=== PATIENT | female | born 1930 | race Caucasian/White ===

== ENCOUNTER 2018-11-12 07:39 | Inpatient (IN) ==
[2018-11-12] MEDS ORDERED: NS 1,000 ML IV PRN (08:17)
--- NOTE | 2018-11-12 08:25 | PROVIDER DOCUMENTATION ---
HPI-Neurological Disorder - General Chief Complaint: General Adult Stated Complaint: LEFT HAND PAIN,RT SHOULDER ,ARM JERKING Time Seen by Provider: 11/12/18 08:06 Source: family Allergies/Adverse Reactions: Patient Allergies Allergy/AdvReac Type Severity Reaction Status Date / Time acetaminophen AdvReac RASH Verified 11/12/18 09:27 [From Contac Cold-Flu Day and Night] chlorpheniramine AdvReac RASH Verified 11/12/18 09:27 [From Contac Cold-Flu Day and Night] phenylephrine HCl * AdvReac RASH Verified 11/12/18 09:27 [From Contac Cold-Flu Day and Night] Home Medications: Home Medication List Medication Instructions Recorded Confirmed Last Taken Type Levothyroxine [Synthroid] 50 microgm PO DAILY 02/08/16 11/12/18 11/12/18 History Metoprolol Succinate E.r. [Toprol 25 mg PO DAILY 02/08/16 11/12/18 11/11/18 History Xl] Dorzolamide/Timolol Ophth Soln 1 drop BID 05/02/17 11/12/18 11/11/18 History [Cosopt Ophth Soln] Aspirin [Aspirin EC] 81 mg PO DAILY 11/12/18 11/12/18 11/11/18 History Irbesartan 150 mg PO DAILY 11/12/18 11/12/18 11/11/18 History Omeprazole 40 mg PO DAILY 11/12/18 11/12/18 11/11/18 History - History of Present Illness-Neuro Nature of Presenting Problem: patient woke up, c/o left arm and shoulder pain which was chronic, then patient was staring, unresponsive but normal breathing, right arm jerking, episode lasted about 6 minutes. Severity: reports: mild Onset/Duration: reports: abrupt, just prior to arrival Timing: reports: improving Context: denies: head injury, fever, impaired speech, paresthesia, facial droop Character of Altered Mental Status: reports: seizure activity Any recent trauma/injury?: reports: none Character of Deficits: reports: falling Cognitive Baseline: alert, oriented x3 Gait Baseline: other (but recently fell 3 times) Associated Symptoms: reports: seizures. denies: short of breath, headache Similar Symptoms Previously?: No Recently seen or treated by another doctor?: No - Seizure First time to have a seizure?: Yes Witnessed seizure?: Yes Status Epilepticus: No Character of Seizure: reports: shaking in one area, staring. denies: generalized shaking all over, incontinent of urine, incontinent of stool, stopped breathing Post-ictal Symptoms: reports: confusion Review of Systems - Adult - REVIEW OF SYSTEMS - ADULT Constitutional: reports: see HPI Eyes: reports: see HPI Ears, Nose, Mouth & Throat: reports: no symptoms reported Cardiovascular: reports: no symptoms reported Respiratory: reports: no symptoms reported Gastrointestinal: reports: no symptoms reported Genitourinary: reports: no symptoms reported Musculoskeletal: reports: bone pain, joint pain Integumentary: reports: no symptoms reported Neurological: reports: seizure Psychiatric: reports: depression Endocrine: reports: no symptoms reported Hematologic/Lymphatic: reports: no symptoms reported Past History - Adult - PAST MEDICAL HISTORY-ADULT Review of Records: reports: Nursing Assessment Review Cardiovascular: reports: HTN. denies: cardiac disease, CHF Respiratory: reports: denies history Gastrointestinal: reports: denies history Obstetrical/Gynecological: reports: denies history Physical Exam- Neurological - Physical Exam-Neuro Initial Vital Signs Reviewed: Yes General Appearance: alert, other (fragile looking) Eye Exam: bilateral eye: PERRL, EOMI HENMT: normocephalic/atraumatic Head Injury: no evidence of injury. negative: active bleeding, Zuñiga's Sign, ecchymosis, raccoon eyes, swelling Neck: non-tender. negative: carotid bruit Respiratory: chest non-tender, lungs clear Cardiovascular: normal peripheral pulses, regular rate, rhythm, no edema, no gallop, no JVD Abdominal Exam: normal bowel sounds, non tender Lymphatic: no adenopathy Extremity: tenderness. negative: pulse deficit, pedal edema vegetable tier Exam: PERRL Motor/Sensory: no motor deficit, no sensory deficit, no pronator drift Integumentary: normal color Psych/Mental Status: normal mood/affect - Glascow Coma Scale Best Eye Response: (4) open spontaneously Best Verbal Response: (5) oriented Best Motor Response: (6) obeys commands Progress - PLAN OF CARE/RESULTS Progress/Plan/Lab Results: Vital Signs - 8 hr 11/12/18 07:46 Temperature 97.3 F L Pulse Rate 58 L Respiratory Rate 20 Blood Pressure 134/60 O2 Sat by Pulse Oximetry 100 Laboratory Results - last 24 hr 11/12/18 11/12/18 11/12/18 09:20 09:20 09:20 WBC 14.71 H RBC 4.41 Hgb 12.7 Hct 37.8 MCV 85.7 MCH 28.8 MCHC 33.6 RDW Std Deviation 13.9 Plt Count 238 MPV 11.1 H Immature Gran % (Auto) 0.1 Neut % (Auto) 81.6 H Lymph % (Auto) 10.2 L [place] % (Auto) 7.9 Eos % (Auto) 0.1 Baso % (Auto) 0.1 Immature Gran # (Auto) 0.02 Neut # (Auto) 12.00 H Lymph # (Auto) 1.50 [place] # (Auto) 1.16 H Eos # (Auto) 0.02 Baso # (Auto) 0.01 PT 14.5 INR 1.05 PTT (Actin FS) 32.7 Sodium 131 L Potassium 4.6 Chloride 98 Carbon Dioxide 20 L Anion Gap 13 BUN 20 Creatinine 1.0 H Estimated GFR/1.73 m2 53 BUN/Creatinine Ratio 20 Glucose 136 H Calculated Osmolality 267 Calcium 9.0 Total Bilirubin 0.92 AST 18 ALT 9 L Alkaline Phosphatase 50 Troponin T Total Protein 6.6 Albumin 3.7 Globulin 2.9 Albumin/Globulin Ratio 1.3 11/12/18 09:20 WBC RBC Hgb Hct MCV MCH MCHC RDW Std Deviation Plt Count MPV Immature Gran % (Auto) Neut % (Auto) Lymph % (Auto) [place] % (Auto) Eos % (Auto) Baso % (Auto) Immature Gran # (Auto) Neut # (Auto) Lymph # (Auto) [place] # (Auto) Eos # (Auto) Baso # (Auto) PT INR PTT (Actin FS) Sodium Potassium Chloride Carbon Dioxide Anion Gap BUN Creatinine Estimated GFR/1.73 m2 BUN/Creatinine Ratio Glucose Calculated Osmolality Calcium Total Bilirubin AST ALT Alkaline Phosphatase Troponin T < 0.010 Total Protein Albumin Globulin Albumin/Globulin Ratio Orders Category Date Time Status Cardiac Monitoring DIRECTED Care 11/12/18 08:17 Active Misc. NRSG Communication Order DIRECTED Care 11/12/18 08:17 Active Oxygen Therapy- ED Nursing DIRECTED Care 11/12/18 08:17 Active Saline Loc NOW Care 11/12/18 08:17 Active CHEST-PORTABLE [RAD] Stat Exams 11/12/18 08:[address] HEAD W/O CONTRAST [CT] Stat Exams 11/12/18 08:17 Completed MRA BRAIN W/O CONTRAST [MRI] Stat Exams 11/12/18 10:50 Ordered MRI BRAIN W/WO CONTRAST [MRI] Stat Exams 11/12/18 10:50 Ordered BLOOD CULTURE [BLDCUL] Stat Lab 11/12/18 10:51 Uncollected CBC WITH ELECTRONIC DIFF [HEME] Stat Lab 11/12/18 09:20 Completed COMPREHENSIVE METABOLIC PANEL [CHEM] Stat Lab 11/12/18 09:20 Completed FREE T4 Stat Lab 11/12/18 10:52 Uncollected LACTATE, PLASMA [CHEM] Stat Lab 11/12/18 10:51 Uncollected PROTIME WITH INR [COAG] Stat Lab 11/12/18 09:20 Completed PTT [COAG] Stat Lab 11/12/18 09:20 Completed TROPONIN T Stat Lab 11/12/18 09:20 Completed TSH Stat Lab 11/12/18 10:52 Uncollected URINALYSIS W/POSS RFLX CULT [URINALYSIS] Stat Lab 11/12/18 08:17 Uncollected 0.9% Sodium Chloride Inj [Ns] 1,000 ml Med 11/12/18 08:17 Active IV 500 mls/hr 0.9% Sodium Chloride Inj [Ns] 500 ml Med 11/12/18 10:20 Discontinued IV 999 mls/hr EKG [EKG] Stat Ther 11/12/18 08:17 Ordered Result Diagrams: 11/12/18 09:20 11/12/18 09:20 Departure - Departure Date of Disposition Decision: 11/12/18 Time of Disposition Decision: 10:55 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 The physician did have a face to face encounter with the patient. - NIH Stroke Scale Level of Consciousness: 0-Alert LOC Questions (ask month and age): 0-Answers Both Correctly LOC Commands (ask to open & close eyes;make a fist, let go): 0-Obeys Both Correctly Best Gaze (horizontal eye movement): 0-Normal Visual (use finger movement, counting or visual threat): 0-No Visual Loss Facial Palsy (show teeth or raise eyebrows & close eyes tght: 0-Symmetrical Movement Motor Function-left arm: 0-Normal Motor Function-right arm: 0-Normal Motor Function-left le-Normal Motor Function-right le-Normal Limb Ataxia(fpidnc-pfux-mtebkm, or heel to lopez): 0-Untestable Sensory(pin prick to face,arms,trunk,legs-compare side/side): 0-No Ataxia Best Language(name item/read sentence.Ex-Down to Earth): 0-No Aphasia Dysarthria(Pt read words or say words Ex.Mama,Tip-Top,Thanks: 0-Normal Articulation Modified [place] Score Criteria: 0-no symptoms
--- NOTE | 2018-11-12 08:44 | Diag Imaging Result Doc PS360 ---
EXAM: CHEST-PORTABLE HISTORY: stroke like symptoms TECHNIQUE: Single view COMPARISON: 06/27/2018 FINDINGS: The lungs are well expanded. The heart is mildly enlarged. The vessels are not distended. There are no infiltrates. No effusion identified. IMPRESSION: Stable exam Electronically signed by Agustin Treviño 11/12/2018 8:42 AM
--- NOTE | 2018-11-12 08:54 | Diag Imaging Result Doc PS360 ---
EXAM: CT HEAD W/O CONTRAST INDICATION: stroke like symptoms TECHNIQUE: This exam was performed using automated exposure control, adjustment of mA or kV according to patient size, and/or use of iterative reconstruction technique. COMPARISON: 09/27/2018 FINDINGS: There is suggestion of mild to moderate white matter microangiopathy, stable. There is no definite acute infarct given the limited sensitivity of CT versus MRI. There is no discrete intracranial mass, mass effect, or intracranial hemorrhage. There is a nonspecific nodule at the superior aspect of the right parotid gland that is stable measuring up to 1.6 x 1.1 cm axially. Surrounding soft tissues and bony structures are essentially unremarkable, otherwise. IMPRESSION: 1.Stable chronic appearing white matter changes. No evidence of acute intracranial pathology by CT. 2.Stable nonspecific right parotid gland nodule. Electronically signed by Joseph Powell 11/12/2018 8:51 AM
[2018-11-12 09:33] LABS: BASO# 0.01 X1000 (0.0-0.2); BASO% 0.1 % (0.0-0.8); EOS# 0.02 X1000 (0.0-0.7); EOS% 0.1 % (0.0-10.0); HEMATOCRIT 37.8 % (37.0-47.0); HEMOGLOBIN 12.7 g/dL (12.0-16.0); IMM GRAN# 0.02 X1000 (0.0-0.04); IMM GRAN% 0.1 % (0.0-0.5); LYMPH% 10.2 % (20.5-51.1); MCH 28.8 PG (27-31); MCHC 33.6 g/dL (33-37); MCV 85.7 FL (81-99); MONO# 1.16 X1000 (0.11-0.59); MONO% 7.9 % (1.7-9.3); MPV 11.1 FL (7.4-10.4); NEUT% 81.6 % (42.2-75.2); PLT 238 X1000 (130-400); RBC 4.41 XMIL (4.2-5.4); RDW 13.9 % (11.5-14.5); WBC 14.71 X1000 (4.8-10.8)
[2018-11-12 09:49] LABS: INR 1.05; PROTIME 14.5 Seconds (11.0-16.0)
[2018-11-12 09:50] LABS: PTT 32.7 Seconds (22.3-41.8)
[2018-11-12 09:51] LABS: ALB/GLOB RATIO 1.3; ALBUMIN 3.7 g/dL (3.5-5.0); POTASSIUM 4.6 mmol/L (3.5-5.1); TOTAL BILIRUBIN 0.92 mg/dL (0.20-1.00); TOTAL PROTEIN 6.6 g/dL (6.3-8.3)
[2018-11-12] MEDS ORDERED: NS 500 ML IV ONE (10:20)
[2018-11-12 11:47] LABS: TSH 0.8 uIUmL (0.27-4.20)
[2018-11-12 12:16] LABS: FREE T4 1.94 ng/dL (0.93-1.70)
[2018-11-12] MEDS ORDERED: ZOFRAN IV PRN (12:16)
[2018-11-12 13:02] LABS: URINE SOURCE CLEAN CATCH
[2018-11-12 13:03] LABS: BILIRUBIN URINE NEGATIVE (NEGATIVE); BLOOD URINE NEGATIVE (NEGATIVE); COLOR YELLOW; GLUCOSE URINE NEGATIVE (NEGATIVE); KETONE URINE NEGATIVE (NEGATIVE); LEUKOCYTES URINE NEGATIVE (NEGATIVE); NITRITE URINE NEGATIVE (NEGATIVE); PH URINE 7.5; PROTEIN URINE NEGATIVE (NEGATIVE); TURBIDITY URINE CLEAR (CLEAR); UROBILINOGEN URINE NORMAL (NORMAL)
[2018-11-12 13:05] LABS: UR EPITHELIAL CELLS <10 /HPF (<10); URINE BACTERIA NEGATIVE /HPF; URINE RBC <10 /HPF (<10); URINE WBC <10 /HPF (<10)
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
--- NOTE | 2018-11-12 15:05 | ECHO REPORT ---
ORDER DATE: 11/12/2018 ECHOCARDIOGRAPHY: INDICATIONS: CVA, hypertension. FINDINGS: 1. The right atrium appears normal in size at 3.1 cm. 2. Moderate tricuspid regurgitation. RV systolic pressure of 48. 3. Normal RV size and systolic function. 4. Mild pulmonic insufficiency. 5. Suggestion of severe left atrial enlargement with a volume index of 51. 6. No mitral valve prolapse. Mild mitral regurgitation. 7. Normal LV size. End-diastolic dimension of 3.5 cm. Normal wall thicknesses with a posterior and interventricular septal wall thickness of 0.9 cm each. Normal LV systolic function with a calculated ejection fraction of 66%, with normal wall motion. 8. Aortic valve opens well. It is trileaflet. There is no evidence of stenosis or insufficiency. 9. Aorta appears normal in visualized segments. 10. No pericardial effusion seen. cc: MD Martha Solis CRNP
--- NOTE | 2018-11-12 15:20 | CONSULTATION ---
DATE OF CONSULTATION: 11/12/2018 Ms. Burk is 88 years old and she had an episode this morning suspicious for focal motor seizure. History from attentive family is that Ms Burk got up from bed and walked unassisted into the kitchen where family was present. She was complaining of left (contralateral to subsequent motor event) hand pain. She was helped to a seat at the table and family noted suddenly that she developed a blank stare, gaze conjugate and fixed straight ahead, was not responding verbally, then had very rapid right arm jerking for several seconds followed by persistent unresponsiveness and staring for several minutes. She began to lean and slump as if she would have fallen from the chair if not supported in chair by family. Family did not notice right leg movement. She appeared pale. After several more minutes, she began to say a few simple soft words. She was not carrying on real conversation for at least an hour or so. The episode was not associated with incontinence, tongue biting, lip biting. Family did not recognize postictal hemiparesis. Patient had not complained of headache. She told me that she felt "shaky" but she did not recognize focal right arm jerking. She thought she was having some trouble with her vision. She does not remember events over the next hour or so until she was at the emergency room. The patient reports no prior similar spells. Family has not witnessed prior similar spell. There has never been previous diagnosed seizure. She has never had diagnosed stroke. She has had a few falls with possible minor head injury but no serious head injury. Family reports a personality change approximately 5 months ago. Over a period of a few weeks, she went from being sweet, kind and independent to being very suspicious, negative, paranoid. She would not allow her face to be bathed and reported thinking that family was putting acid on her face when they attempted to assist her bathing. She had made some mistakes with checkbook and family took over supervision of that. She had made some mistakes with medicines, mostly apparently being paranoid and suspicious of the medicine and deciding not to take medicine doses as scheduled. There was not history of taking too much medicine. Family has been supervising medications in recent months. There have not been any recent medicine changes. She has not had sedatives. There is no history of ethanol use. She has not had illicit drug use. Her current medicine list does not include anything that likely would be associated with encephalopathy either with intoxication or in withdrawal. Workup here includes noncontrast CT showing scattered micro ischemic change across both hemispheres, but nothing acute and nothing significantly changed compared to scans of a few months ago. Lab work shows WBC 14,700. Sodium was 131. I do not see anything else remarkable on the chemistry profile. On exam, Ms. Burk is supine, easily waked, briefly alert and attentive, sometimes seeming to sleep during my interview with family. Her speech is not dysarthric. Language function is intact on bedside testing of repeating, naming, comprehension, fluency. She did well with tasks requiring right/left distinction and digit distinction. She has full visual higgins tested very grossly by confrontational finger counting. She has good lateral eye movement with passive head turning and she has spontaneous left and right gaze conjugately. She has diminished upgaze typical for age. Facial motility is diminished bilaterally, but symmetric. There is no ptosis. Gag is intact. Tongue is midline. Palate is midline. She can hear. She guards her left arm at the shoulder and at the wrist. She demonstrated good power in the arms and legs. She did well on [id number] testing bilaterally. She reports equal pinprick appreciation over the limbs. I did not test her gait. Reflexes are absent at the ankles and 1+ symmetrically at the wrist. Plantar response is silent bilaterally. IMPRESSION: 1. Episode this morning sounds like left hemisphere seizure with focal motor involvement of the right arm and associated altered awareness for several minutes, then postictal state for an hour or so. She seems to be recovered now. We do not have history of any prior or subsequent seizure. Reason for focal seizure onset in this age group would statistically most likely be ischemic infarction. Negative CT is reassuring but would not exclude recent acute infarction. However, I do not find a deficit now to attribute to an acute dominant left hemisphere infarction. 2. Personality change several months ago. Explanation is not clear. She has had some forgetfulness and I wonder if she has a degenerative central nervous system process with early dementia. We might try to assess her mental status better later. Eventually , cholinesterase inhibitor trial might be considered. During hospitalization, she may require management for delirium and/or psychosis. Since this is always problematic, I hope not. I have ordered EEG. I think MRI will be helpful when practical. Further plans will depend on her clinical course. I have discussed my impression frankly with patient and family. Thanks for asking Neurology to see Ms. Burk. cc: MD MARIALUISA Younger III
[2018-11-12] MEDS: NS 1,000 ML IV SCH (16:00)
--- NOTE | 2018-11-12 16:46 | Diag Imaging Result Doc PS360 ---
EXAM: MRI BRAIN W/WO CONTRAST INDICATION: stroke symptoms COMPARISON: CT dated 11/12/2018. No prior MRI brain is available for comparison. FINDINGS: There is no evidence of acute infarct. There is age-appropriate diffuse brain atrophy. There is patchy T2/FLAIR hyperintensity in the periventricular and subcortical white matter suggesting mild to moderate microangiopathy. There is no discrete intracranial mass, mass effect, or intracranial hemorrhage. There is no evidence of abnormal intracranial enhancement. The nonspecific nodule in the superior aspect of the right parotid gland seen on prior CTs is again identified measuring 1.4 x 1.3 cm axially. There is no evidence of significant enhancement. Surrounding soft tissues and bony structures are essentially unremarkable, otherwise. IMPRESSION: Atrophy and mild to moderate chronic appearing white matter changes. No definite acute intracranial pathology. Electronically signed by Joseph Powell 11/12/2018 4:43 PM
--- NOTE | 2018-11-12 17:11 | Diag Imaging Result Doc PS360 ---
EXAM: MRA BRAIN W/O CONTRAST INDICATION: stroke symptoms TECHNIQUE: Axial 3-D [id number] images and 3-D MIPS were obtained. COMPARISON: None. FINDINGS: There is no evidence of flow-limiting stenosis, vascular malformation, or cerebral aneurysm involving the arteries comprising the [place] including the anterior, middle, and posterior cerebral arteries. The distal ICAs and distal vertebral arteries are patent. The basilar artery is patent. IMPRESSION: No evidence of flow-limiting stenosis. Electronically signed by Joseph Powell 11/12/2018 5:08 PM
[2018-11-13] MEDS: COSOPT OPHTH SOLN BOTH EYES SCH ×3 (00:24→20:00)
[2018-11-13] MEDS: NS 1,000 ML IV SCH ×2 (06:29→16:51)
[2018-11-13] MEDS: SYNTHROID PO SCH (06:57)
[2018-11-13] MEDS: PRILOSEC PO SCH (06:57)
[2018-11-13 07:54] LABS: BASO# 0.02 X1000 (0.0-0.2); BASO% 0.2 % (0.0-0.8); HEMATOCRIT 33.1 % (37.0-47.0); HEMOGLOBIN 11.2 g/dL (12.0-16.0); IMM GRAN# 0.02 X1000 (0.0-0.04); IMM GRAN% 0.2 % (0.0-0.5); LYMPH% 13.7 % (20.5-51.1); MCH 29.2 PG (27-31); MCHC 33.8 g/dL (33-37); MCV 86.4 FL (81-99); MONO# 1.53 X1000 (0.11-0.59); MONO% 12.3 % (1.7-9.3); MPV 11.4 FL (7.4-10.4); NEUT# 9.14 X1000 (1.4-6.5); NEUT% 73.6 % (42.2-75.2); PLT 233 X1000 (130-400); RBC 3.83 XMIL (4.2-5.4); RDW 13.6 % (11.5-14.5); WBC 12.41 X1000 (4.8-10.8)
[2018-11-13 08:26] LABS: FERRITIN 508 ng/mL (13-150)
[2018-11-13 08:31] LABS: ALBUMIN 3.2 g/dL (3.5-5.0); CREATININE 0.9 mg/dL (0.5-0.9); MAGNESIUM 1.8 mg/dL (1.5-2.7); TOTAL BILIRUBIN 0.78 mg/dL (0.20-1.00); TOTAL PROTEIN 6.3 g/dL (6.3-8.3)
[2018-11-13 08:37] LABS: INR 1.15; PROTIME 15.6 Seconds (11.0-16.0)
[2018-11-13] MEDS: ASPIRIN PO SCH (09:56)
[2018-11-13] MEDS: AVAPRO PO SCH (09:56)
[2018-11-13] MEDS: TOPROL XL PO SCH (09:56)
--- NOTE | 2018-11-13 12:12 | PROGRESS NOTE ---
DATE: 11/13/2018 Ms. Burk is awake, alert, attentive. She is much brighter and more spontaneous with conversation today compared to when I saw her yesterday. Speech is not dysarthric. Language remains intact on brief bedside testing. She has good power in the limbs. She reports soreness in the left arm, limiting demonstration of power there. She has not noticed any further episodes of involuntary right arm jerking. Family at the bedside confirms that report. MRI scan shows typical age-related changes but nothing focal or acute and specifically no evidence of acute left hemisphere lesion to account for the apparent focal motor right arm seizure episode early yesterday. EEG is pending. Further plans will depend on that report and on her clinical course. I would continue to follow without adding seizure medicines at this point unless she has another clinical episode or EEG shows tendency to seizure. Thanks for asking Neurology to see Ms. Burk. cc: Genaro Gage III, MD MTDD
--- NOTE | 2018-11-13 16:46 | PROGRESS NOTE ---
DATE: 11/13/2018 SUBJECTIVE: Ms. Burk was admitted yesterday. She started staring straight ahead and her right arm started jerking. She was sitting at the table. She has a history of hypothyroidism, hypertension, arthritis, kyphosis, left breast cancer. She has had a lumpectomy. Her daughters and family take care of her and they witnessed about 6 minutes of event where she was staring into space, right arm jerking, and then she seemed to be confused and lethargic. Apparently in May she was driving herself, standing upright, no problems with activities of daily living, happy person. Seemed to be sometime in May she started having extreme spells of agitation, paranoia, constantly worrying about everything, having visual and tactile hallucinations and delusions, behavior type symptoms, loss of memory. She has had about 4 falls. She did go for a CT head that showed no acute findings. MRI and MRA of the brain have been ordered. There has not been any recent change in her medications. No fever or chills. PAST MEDICAL HISTORY: 1. Hypothyroidism with nodule. 2. Hypertension. 3. Left breast cancer with lumpectomy. 4. Arthritis. 5. Kyphosis. 6. She has had this change in behavior since May of 2018. PAST SURGICAL HISTORY: 1. Appendectomy. 2. Left breast lumpectomy. 3. Bilateral knee replacements. 4. Left leg muscle reattachment. 5. Hysterectomy. 6. Tonsillectomy and adenoidectomy. 7. Bilateral cataracts. 8. Back surgery. So, admitted with change in behavior. Transient ischemic attack was considered or maybe a partial complex or even general seizure. She is doing better. Family says she seems to have a better day today. She is talking and is able to swallow. She has complained of a little left hand pain though she did not seem to be tender or hurting when I examined her about 1 o'clock this afternoon. OBJECTIVE: Afebrile with temperature 98.5 degrees, pulse 64, respirations 20, blood pressure 144/63.HEENT: Pupils are equal and round. Lungs: Clear in all lung higgins. Cardiovascular: Regular rhythm and rate without murmur. S3. Dr. Gage has examined. ASSESSMENT AND PLAN: 1. Episode in the morning. Dr. Gage feels like left hemisphere seizure, focal motor involvement of the right arm associated with altered awareness for several minutes and postictal state for about an hour and seems to have recovered. EEG was done and a focal seizure apparently in this age group is more likely ischemic infarction. Negative CT was reassuring. No deficits found to attribute to left hemisphere infarction on exam. 2. Personality change months ago. She has some forgetfulness and the question is whether she has degenerative central nervous system process, early dementia, and this could be assessed a little better later on and consider cholinesterase inhibitor trial. 3. Hypothyroidism. Consider Synthroid. 4. Hypertension. Blood pressures appear well controlled. 5. Deep venous thrombosis prophylaxis. 6. Leukocytosis. Reported some sinus drainage and green-yellow phlegm. Denies any fever. 7. Resuscitation status: She is a do not resuscitate level 1. REVIEW OF HER ORDERS: I do not see any change. She is getting normal saline at 75 mL an hour. cc: Calvin Solomon MD
--- NOTE | 2018-11-13 19:54 | EEG REPORT ---
DATE: 11/12/2018 REFERRING PHYSICIAN: Dr. Genaro Gage. SUPERVISOR ENGINE [employer]SEMBLY: Johanna Ruiz. BACKGROUND INFORMATION/TECHNIQUE: This is a digitally recorded routine EEG with video. HISTORY: This 88-year-old female with history of left breast cancer and hypothyroidism presented after having a witnessed six-minute episode of staring with right arm jerking. She has also had spells of agitation with paranoia and constantly worrying about things. She has had visual and tactile hallucinations with delusions. EEG is ordered to detect evidence of seizures. EEG FINDINGS: This is a technically limited routine EEG due to diffuse myogenic artifact necessitating heavy filtering. A well formed posterior dominant alpha rhythm is not seen. The anterior background consists of mixed alpha, beta, and theta range frequencies. No definite persistent focal slowing. No definite epileptiform discharges. No seizures. Hyperventilation was not performed. Photic stimulation was not performed. No definite drowsiness patterns. Stage II sleep is not seen. EKG shows artifact frequently but at times regular intervals are seen. IMPRESSION AND CLINICAL CORRELATION: Abnormal routine EEG due to mild diffuse slowing, suggestive of a mild nonspecific encephalopathy. No epileptiform discharges and no seizures are seen on the current study. This does not rule out an underlying seizure disorder. Clinical correlation is recommended. cc: MD Gnearo Tellez III, MD MTDD
[2018-11-14] MEDS: PRILOSEC PO SCH (06:23)
[2018-11-14] MEDS: SYNTHROID PO SCH (06:23)
[2018-11-14] MEDS: NS 1,000 ML IV SCH ×2 (06:36→20:40)
[2018-11-14] MEDS: COSOPT OPHTH SOLN BOTH EYES SCH ×2 (10:24→20:40)
[2018-11-14] MEDS: ASPIRIN PO SCH (10:25)
[2018-11-14] MEDS: TOPROL XL PO SCH (10:25)
[2018-11-14] MEDS: AVAPRO PO SCH (10:25)
--- NOTE | 2018-11-14 12:06 | PROGRESS NOTE ---
DATE: 11/14/2018 Ms. Burk has not had any more episodes of involuntary limb jerking, blank stare , or other seizure- like behavior. Family reports she did have a restless night, complaining of left arm pain. They report history of gout with mostly lower extremity involvement and believe that her recent left arm complaints may be somewhat similar. EEG showed generalized slowing but no definite focal slowing and no definite epileptiform discharge. In light of the single isolated apparent seizure event with negative workup and stable course, I would not add medicine for seizure control at this point. We discussed her recent personality change and question of cognitive impairment syndrome. I think that can be better evaluated as an outpatient. I will be glad to see her if needed. Family understands that they should report any further possible seizure and, at that point, likely will need to add medicine for seizure control. Thanks for asking Neurology to see Ms. Burk. cc: Genaro Gage III, MD MTDD
--- NOTE | 2018-11-14 17:47 | PROGRESS NOTE ---
DATE: 11/14/2018 SUBJECTIVE: Ms. Burk is still complaining of her left hand. Her mental status the family feels like it is a little better. She is not really complaining of any other specific pain just her left hand and wrist. She does have a history of gout. OBJECTIVE: Temperature 98.2 degrees, pulse 64, respirations 20, and blood pressure 145/65.HEENT: Pupils are equal and round. No distended neck veins. Lungs: Clear in all lung higgins. Cardiovascular: Regular rhythm and rate without murmur or S3. Abdomen: Soft. Skin: Warm and dry. Urine output is 2200 mL. ASSESSMENT AND PLAN: 1. She has not had any more episodes of involuntary limb jerking and blank stare seizure behavior. She did have a restless night complaining of some left wrist pain. I wonder if this wrist pain could be gout. 2. Left wrist pain, it looks like synovitis so I am going to give her some colchicine and see if that will help. 3. History of hypertension. 4. History of hypothyroidism. 5. A distant history of left breast cancer with lumpectomy. 6. Kyphosis. 7. Osteoarthritis. PLAN: Hopefully, we can discharge her tomorrow. We will see how she does on her colchicine. She is eating and her strength seems to be better. Mental status seems to have improved. She is getting normal saline at 75 mL an hour, and her renal function looks good. cc: Calvin Solomon MD
[2018-11-14] MEDS: COLBENEMID PO SCH (20:18)
[2018-11-15] MEDS: PRILOSEC PO SCH (06:33)
[2018-11-15] MEDS: SYNTHROID PO SCH (06:33)
[2018-11-15] MEDS: NS 1,000 ML IV SCH (10:18)
[2018-11-15] MEDS: TOPROL XL PO SCH (10:24)
[2018-11-15] MEDS: AVAPRO PO SCH (10:24)
[2018-11-15] MEDS: COSOPT OPHTH SOLN BOTH EYES SCH (10:24)
[2018-11-15] MEDS: ASPIRIN PO SCH (10:24)
[2018-11-15] MEDS: COLBENEMID PO SCH (10:25)
--- NOTE | 2018-11-15 11:23 | PROGRESS NOTE ---
DATE: 11/15/2018 SUBJECTIVE: Ms. Burk says she does not feel well, but she does not have specific complaint. Her left wrist and forearm continue to be sore, but not worse than yesterday. She has not had any more episodes of right arm jerking or other seizure like activity. Family reports she was started on escitalopram several months ago. Family reports there may have been some initial benefit with escitalopram, particularly for anxiety, but in recent months they had not noticed definite benefit. She has not had escitalopram or similar medicines since admission here. They may check with Dr. Hernández, her primary physician, about resuming escitalopram or trying something different after discharge. I would not add medicine for seizure control at this point. If she has a clinical seizure, we can workup further and reconsider medicines for seizure control. I will be glad to see her as an outpatient, and I believe she has an appointment in my office soon. Thanks for asking Neurology to see Ms. Burk. cc: MD MARIALUISA Younger III
[2018-11-15 13:58] VITALS: BP 179/84
--- NOTE | 2018-11-15 15:10 | DISCHARGE SUMMARY ---
ADMISSION DATE: 11/12/2018 DISCHARGE DATE: 11/15/2018 HISTORY: The patient was admitted on 11/12/2018 and discharged on 11/15/2018. This is a patient of Dr. Akers who started having right arm jerking. She had a medical history of hypothyroidism, hypertension, arthritis, kyphosis, left breast cancer, and she had lumpectomy. She presented with one of her daughters. They witnessed about a 6 minute event where she was staring into space, and her right arm was jerking. Once the patient came to, she was at her baseline. She was complaining of some left arm pain. Family was concerned about symptoms, and she started having symptoms like she had back in May. Apparently in May, she was driving herself standing upright and had no problems with activities of daily living and was a happy person. Sometime in May, she started having extreme spells of agitation and paranoia constantly worrying about everything having visual and tactile hallucinations along with delusions and behavior type symptoms. She had no loss of memory. She always has been oriented with just extreme behavior disturbances. Since May or June, she started having family staying with her 24/04. She does not stay alone. Also during this time, she had about four falls. Given the symptoms, she presented with and got a CT of the head and did not show any acute findings. MRI and MRA was ordered, and admitted for workup. PAST MEDICAL HISTORY: 1. Hypothyroidism with nodule. 2. Hypertension. 3. Left breast cancer with lumpectomy. 4. Arthritis. 5. Kyphosis. 6. Most recently sudden onset of behavior disturbance, hallucinations, delusions and most likely some underlying dementia since May. ADMISSION DIAGNOSIS: There was a question whether she had a transient ischemic event or a focal seizure, and some postictal symptoms. 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 Her lab was unremarkable. Dr. Gage evaluated, and he felt episodes sound like left hemisphere seizure with focal motor involvement of the right arm associated with altered awareness for several minutes in a postictal state for an hour, and seems to have recovered. She has not had any history of prior or subsequent or reason for focal seizure and this age group would be most likely ischemia, but negative CT scan. Then, the personality changes and forgetfulness wondering if there is some cognitive decline. Dr. Gage did not add anything or recommend something for seizure control at this time. She was started on escitalopram several months ago. Family reports there may have been some initial benefit with the escitalopram particularly for anxiety, but recent months they had not noticed any definite benefit. She has not had the escitalopram or similar medicine since admission. We will leave those off, and see if he wants to try anything different later on. At this point, she will go home with the followin. Aspirin 81 mg a day. 2. Avapro 150 mg a day. 3. Synthroid 50 mcg a day. 4. Toprol-XL 25 mg a day. 5. Prilosec 40 mg a day. 6. I put her on ColBenemid really for the colchicine for which she will have colchicine twice a day. She had left wrist and hand pain which I suspect is acute gouty arthritis. She will follow up with Dr. Akers. They are going to go home. They do not want home health at this time. cc: Calvin Solomon MD
--- NOTE | 2018-11-15 21:20 | Carotid Study ---
DATE: 11/12/2018 PROCEDURE: Bilateral carotid duplex imaging. REFERRING PHYSICIAN: Dr. Ray. INTERPRETING PHYSICIAN: TECH: Ole. INDICATIONS: CVA. OBSERVED DATA RIGHT LEFT Brachial Blood Pressure Carotid Pulse Bruits: Carotid/Sub DIAGRAM OF ULTRASOUND IMAGING R L RIGHT INT EXT INT EXT LEFT Frank (cm/s) Frank (cm/s) Subclavian 85/0 Subclavian 117/0 CCA Proximal 63/7 CCA Proximal 73/8 CCA Distal 67/8 CCA Distal 82/14 Bulb 64/11 Bulb 184/26 ICA Proximal 48/13 ICA Proximal 148/23 ICA Mid 95/23 ICA Mid 104/19 ICA Distal 73/21 ICA Distal 88/24 ECA 81/6 ECA 143/10 Vertebral 66/15 A Vertebral 50/10 A ICA/CCA Ratio 1.42 ICA/CCA Ratio 1.61 % Stenosis 0-39 % Stenosis 40-59 FINDINGS: In the right carotid bulb there are some atherosclerotic changes but no hemodynamically significant lesion. On the left there is more focal plaque in the bulb that does cause elevation of velocities that would correlate to a 40% - 59% lesion here. SUMMARY: Mild to moderate atherosclerotic changes noted in the bilateral carotid artery system, worse in the left carotid bulb. cc: MD Martha Jamil CRNP
== END 2018-11-15 15:32 | disposition home or self-care (01) | DRG 101 ==
LOC: ED 07:39 → SUATTDRO 12:54 → EDIPHOLD 12:54 → 3N 16:23
PROVIDERS: ATTEND Emergency Medicine
CPT/HCPCS: 70450; 70544; 70553; 71010; 71045; 80053; 80061; 81001; 82607; 82728; 82746; 83540; 83550; 83605; 83721; 83735; 84439; 84443; 84484; 85025; 85610; 85730; 86592; 87040; 92523; 93005; 93306; 93880; 94761; 95816; 97110; 97162; 97165; 97530; 99285; A9270; A9579; J7030